=== PATIENT | male | born 1990 | race Caucasian/White ===

== ENCOUNTER 2016-09-30 19:17 | Emergency (ER) | payer OTHER ==
[~2016-09-30] VITALS: Ht 162.6 cm; Wt 56.8 kg
[2016-09-30 19:23] VITALS: Ht 162.6 cm; Wt 56.8 kg
[2016-09-30] MEDS ORDERED: LIDOCAINE 1% (MDV) 20 ML INJ SC ONE (21:00)
--- NOTE | 2016-09-30 22:10 | RADRPT ---
PROCEDURE: CT head, without contrast. CLINICAL INDICATION: Fall with blunt head trauma. TECHNIQUE: Noncontrast CT examination of the head, with axial, sagittal and coronal reformatted im ages. Automated dose exposure control was employed. CTDI: 44.52 mGy and DLP: 720.23 mGy-cm. COMPARISON: None. FINDINGS: No acute hemorrhage. Subarachnoid spaces are substantially preserved and symmetric. Ventricles ar e unremarkable. No mass effect. Pino-white matter distinction is preserved without evident decreased attenuation t o suggest acute or recent infarct. Sinuses and osseous structures are unremarkable. IMPRESSION: No acute process in the head. RPTAT: [facility] Physician Haider Date Time Electronically viewed and signed by Physician Haider on 09/30/2016 22:10 RS/
--- NOTE | 2016-09-30 22:16 | RADRPT ---
PROCEDURE: CT facial bones CLINICAL INDICATION: Fall with facial injury. TECHNIQUE: Noncontrast CT of the facial bones was performed on a CT scanner utilizing high-resolu tion axial images. Sagittal, coronal, and multiplanar reformatted images were made. Additionally, 3-D reformatted images were made. The CTDIvol is 29.41 mGy and the DLP is 519.24 mGy-cm. COMPARISON: None. FINDINGS: The osseous structures are intact with no evidence of fracture. The orbits, as visualized, appear i ntact. The overlying soft tissues are grossly unremarkable. Mild mucosal thickening and air-fluid levels in the bilateral maxillary sinuses suggest a degree of sinusitis. Mild opacification of ethm oid air cells. IMPRESSION: 1. Mild sinusitis. 2. No acute fracture. RPTAT: [facility] Physician Haider Date Time Electronically viewed and signed by Physician Haider on 09/30/2016 22:16 RS/
[2016-09-30] MEDS ORDERED: ACET325T33 PO (23:17)
[2016-10-01 00:23] VITALS: BP 111/61; PULSE 74; RESP 16
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
== END 2016-10-01 00:26 | disposition home or self-care (01) ==
LOC: FTE 19:17
DX: S01.112A Laceration without foreign body of left eyelid and periocular area, initial encounter (principal); S61.411A Laceration without foreign body of right hand, initial encounter; Y04.8XXA Assault by other bodily force, initial encounter; Y92.9 Unspecified place or not applicable
CPT/HCPCS: 70450; 70486